=== PATIENT | male | born 1935 | race Caucasian/White ===

== ENCOUNTER 2016-07-02 07:54 | Emergency (ER) | payer BC, MEDICARE ==
--- NOTE | 2016-07-02 08:02 | ED.PDOC ---
History of Present Illness - General Chief Complaint: General Stated Complaint: feeling weak,fall Time Seen by Provider: 07/02/16 08:01 Source: patient, RN notes reviewed, Vital Signs reviewed, EMS notes reviewed Exam Limitations: no limitations - History of Present Illness Initial Comments: Wilbert 81 y/o male wirh history of RA and hyperlipedemia stated that he had vomiting and diarrhea 4 days ago got better and after taking shower this am got out but fell unable to get up and crawled out he was then helped by his son.He denies pain on his body ,no loc remembers incident stated son staying with him since is out of town and helped him then called ems.He also denies slurred speech and facial weakness Timing/Duration: 1-3 hours Improving Factors: nothing Worsening Factors: nothing Associated Symptoms: denies symptoms Allergies/Adverse Reactions: Allergies NO KNOWN ALLERGY Allergy (Verified 07/02/16 08:10) Review of Systems - Review of Systems Constitutional: States: no symptoms reported EENTM: States: no symptoms reported Respiratory: States: no symptoms reported Cardiology: States: no symptoms reported Gastrointestinal/Abdominal: States: see HPI Genitourinary: States: no symptoms reported Musculoskeletal: States: no symptoms reported Skin: States: no symptoms reported Neurological: States: no symptoms reported Endocrine: States: no symptoms reported Hematologic/Lymphatic: States: no symptoms reported Past Medical History (General) - Patient Medical History Hx Other PMH: Yes - Rheumatoid Arthtritis,hyperlipedemia Surgical History: appendectomy - Activities of Daily Living Patient Lives Alone: No - with Family Medical History - Family History Mother Family History: Unknown Name: Both parents when he was 1 y/o he was taken cared by his step brother Physical Exam - Physical Exam General Appearance: Alert, Comfortable, No apparent distress Eye Exam: bilateral normal Ears, Nose, Throat: hearing grossly normal, normal ENT inspection, normal pharynx Neck: non-tender, full range of motion, supple, normal inspection Respiratory: chest non-tender, lungs clear, normal breath sounds, no respiratory distress, no accessory muscle use Cardiovascular/Chest: normal peripheral pulses, regular rate, rhythm, no edema, no gallop, no JVD, no murmur Peripheral Pulses: radial,right: 2+, radial,left: 2+ Gastrointestinal/Abdominal: normal bowel sounds, non tender, soft, no organomegaly, no pulsatile mass Back Exam: normal inspection, no CVA tenderness, no vertebral tenderness Extremity: normal range of motion, non-tender, normal inspection, no pedal edema Neurologic: no motor/sensory deficits, alert, normal mood/affect, oriented x 3 Skin Exam: normal color, warm/dry Lymphatic: no adenopathy Departure - Departure Clinical Impression: Malaise and fatigue, Post viral debility Fall at home Qualifiers: Encounter type: initial encounter Qualifier Code: (W19.XXXA) Unspecified fall, initial encounter Time of Disposition: 12:47 Disposition: Discharge to Home or Self Care Condition: Good Instructions: DI for Viral Syndrome Additional Instructions: KEEP APPOINTMENT WITH PRIMARY MD THIS AFTERNOON,RETURN TO EMERGENCY ROOM NEEDED
[2016-07-02 08:13] VITALS: TEMP 99.5
--- NOTE | 2016-07-02 08:56 | RAD ---
EXAM DESCRIPTION: Chest,1 View CLINICAL HISTORY: Full injury. Chest pain FINDINGS/ IMPRESSION: Normal cardiomediastinal silhouette given the positioning. No pulmonary edema, infiltrate or effusion. No pneumothorax. 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
[2016-07-02] MEDS ORDERED: cefTRIAXone SODIUM 2 GM in SODIUM CHL 0.9% 100ML MINI-BAG 100 ML IVPB ONE (11:28)
[2016-07-02] MEDS ORDERED: SODIUM CHLORIDE 0.9% 500ML 500 ML IVS ONE (11:34)
[2016-07-02] MEDS ORDERED: SODIUM CHL 0.9% 100ML MINI-BAG 100 ML IVPB ONE (11:43)
[2016-07-02 13:14] VITALS: BP 145/81; O2SAT 98
== END 2016-07-02 12:57 | disposition home or self-care (01) ==
LOC: ER 07:54
DX: R53.81 Other malaise (principal); M06.9 Rheumatoid arthritis, unspecified; E78.5 Hyperlipidemia, unspecified; W19.XXXA Unspecified fall, initial encounter; Y92.002 Bathroom of unspecified non-institutional (private) residence as the place of occurrence of the external cause

== ENCOUNTER → 2016-11-12 | Outpatient (CLI) | payer MEDICARE, OTHER ==
--- NOTE | 2016-11-12 11:05 | MRI ---
EXAM DESCRIPTION: Brain w/oContrast CLINICAL HISTORY: MEMORY LOSS COMPARISON: None available TECHNIQUE: Non contrast MRI of the brain is performed according to our usual protocol including multiplanar multi sequence technique. FINDINGS: Noncontrast MRI of the brain demonstrates ventriculomegaly with very slight prominence of the ventricular system and cortical sulci with no evidence of extra-axial fluid collection or midline shift. Extensive coalescent and scattered periventricular and subcortical white matter changes of aging and small vessel disease is apparent. A large area of cortical gliosis is not apparent. No midline shift is seen. Gradient echo imaging demonstrates no evidence of intracranial or subarachnoid hemorrhage. A few of the white matter signal changes appear to be juxtacortical raising the possibility of an element of a demyelinating process in this elderly male patient. The demographic and sex of this patient would make multiple sclerosis an unlikely diagnosis. No evidence of restricted diffusion to suggest acute or subacute ischemia is seen. The corpus callosum is intact. The sellar and suprasellar regions are normal and no abnormality of the brainstem is noted with midline position of the fourth ventricle. IMPRESSION: 1. Ventriculomegaly and prominence of the cortical sulci with extensive periventricular and subcortical white matter changes of aging and small vessel disease. These findings are somewhat more prominent than typically seen. 2. No evidence of recent or prior cortical infarction or focal atrophy or evidence of extra-axial fluid collection or intracranial hemorrhage or mass. 3. A few of the white matter signal changes appear to be juxtacortical. This location raises the possibility of a demyelinating process which is thought unlikely in this elderly male patient but cannot be entirely excluded. Electronically signed by: Vineet García MD 11/12/2016 11:04 AM CDT
== END ==
LOC: MRI 07:50
DX: R41.3 Other amnesia (principal); G93.89 Other specified disorders of brain

== ENCOUNTER → 2017-10-02 | Outpatient (CLI) | payer MEDICARE, OTHER | LOC: GMAH 10:13 | PROVIDERS: ATTEND Family Medicine | DX: Z12.5 Encounter for screening for malignant neoplasm of prostate (principal) ==

== ENCOUNTER → 2018-03-25 | Outpatient (CLI) | payer MEDICARE, OTHER | LOC: GMAH 10:28 | PROVIDERS: ATTEND Family Medicine | DX: E78.2 Mixed hyperlipidemia (principal); Z12.5 Encounter for screening for malignant neoplasm of prostate | CPT/HCPCS: 84443; 84550; G0103 ==

== ENCOUNTER 2018-05-25 05:38 | Day surgery (SDC) | payer MEDICARE, OTHER ==
[2018-05-25] MEDS ORDERED: PROPARACAINE 0.5% OPHTH SOL 15 ML BTTL ONE (10:51)
[2018-05-25] MEDS ORDERED: TROP 1%/CYCLOPEN 1%/PHENYL 2% DROPS ONE (10:51)
[2018-05-25] MEDS ORDERED: MOXIFLOXACIN HCL (OPHTH) 1 DROP DROPS ONE (10:51)
== END 2018-05-25 11:43 | disposition home or self-care (01) ==
LOC: AMB 05:38
PROVIDERS: ATTEND Ophthalmology
DX: H26.491 Other secondary cataract, right eye (principal)

== ENCOUNTER 2019-09-01 14:21 | Emergency (ER) | payer MEDICARE, OTHER ==
[2019-09-01] MEDS ORDERED: SODIUM CHLORIDE 0.9% (FLUSH) 10 ML SYG IV PRN (14:42)
--- NOTE | 2019-09-01 15:43 | RAD ---
EXAM DESCRIPTION: Chest,1 View CLINICAL HISTORY: 84 years Male, vertigo COMPARISON: July 02, 2016 Findings: One view(s)/radiograph(s) Borderline cardiomegaly. No pulmonary vascular congestion. No pneumothorax. No definite pleural effusion. No focal consolidation. No acute osseous abnormality identified. IMPRESSION: No acute cardiopulmonary abnormality. Electronically signed by: Aristides Munguia MD 09/01/2019 3:41 PM CDT
--- NOTE | 2019-09-01 15:55 | CT ---
EXAM DESCRIPTION: Head CLINICAL HISTORY: stroke COMPARISON: None TECHNIQUE: Noncontrast transaxial CT images of the head are obtained from base to vertex. This exam was performed according to our departmental dose-optimization program, which includes automated exposure control, adjustment of the mA and/or kV according to patient size and/or use of iterative reconstruction technique. FINDINGS: The midline structures are not displaced. Sulci are age-appropriate. There are areas of decreased attenuation in the periventricular white matter and the white matter of the centrum semiovale. There is no evidence of mass, mass-effect, hydrocephalus, or acute intracranial hemorrhage. No abnormal extra axial fluid collection is seen. Bone windows show no evidence of depressed skull fracture. Moderate calcifications of the intracranial carotid arteries are seen. The visualized paranasal sinuses are unremarkable. IMPRESSION: 1. Age-appropriate atrophy with evidence of old small vessel ischemic type changes seen. 2. No acute abnormality is seen on noncontrast CT of the head. CT is insensitive for evaluation of acute intracranial ischemia. If clinically indicated further evaluation with MRI imaging may be useful Electronically signed by: Ran Esquivel MD 09/01/2019 3:53 PM CDT
--- NOTE | 2019-09-01 16:36 | ED.PDOC ---
History of Present Illness - General Chief Complaint: General Stated Complaint: Dizziness for 2 Weeks Time Seen by Provider: 09/01/19 14:41 Source: patient, Vital Signs reviewed, RN/MD Exam Limitations: no limitations - History of Present Illness Initial Comments: 84 y/o male c/o 2 weeks of dizziness, like vague kind of vertigo. He had fallen and hit his R forehead and seemed to have thihs feeling since. No headaches, f/c, falls, n/v, or visual disturbance. He has had vertigo in the past but says it's different from this. No incontinence. no noticeable change in gait. Allergies/Adverse Reactions: Allergies NO KNOWN ALLERGY Allergy (Verified 07/02/16 08:10) Home Medications: Ambulatory Orders Meclizine HCl [Meclizine 25] 25 mg PO Q4HR PRN #20 tab 09/01/19 Review of Systems - Review of Systems Constitutional: States: no symptoms reported EENTM: States: no symptoms reported Respiratory: States: no symptoms reported Cardiology: States: no symptoms reported, other - he has a pulse ox and notices that his pulse rate is quite variable but not especially high or low Gastrointestinal/Abdominal: States: no symptoms reported, see HPI Genitourinary: States: no symptoms reported, other - nocturia x 2 Musculoskeletal: States: joint pain, muscle pain, other - has rheumatoid arthritis Skin: States: no symptoms reported Neurological: States: other - vertigo Past Medical History (General) - Patient Medical History Hx Congestive Heart Failure: No Hx Diabetes: No - Vaccination History Hx Tetanus, Diphtheria Vaccination: - unknown Hx Influenza Vaccination: No Hx Pneumococcal Vaccination: Yes - Social History Hx Tobacco Use: No Hx Alcohol Use: Yes Hx Substance Use: No Hx Substance Use Treatment: No Hx Depression: No - Female History Patient : No Family Medical History - Family History Mother Family History: Unknown Name: Both parents when he was 1 y/o he was taken cared by his step brother Physical Exam - Physical Exam General Appearance: Alert, Comfortable, No apparent distress Eye Exam: bilateral abnormal EOM - nystagmus with R gaze Ears, Nose, Throat: hearing grossly normal, normal ENT inspection Neck: non-tender, normal inspection, limited range of motion - arthritis Respiratory: chest non-tender, lungs clear, normal breath sounds, no respiratory distress Cardiovascular/Chest: regular rate, rhythm, no edema, no gallop, no JVD, no murmur Gastrointestinal/Abdominal: normal bowel sounds, non tender, soft, no organomegaly Back Exam: normal inspection Extremity: normal inspection, no pedal edema Neurologic: no motor/sensory deficits, alert, normal mood/affect, oriented x 3, abnormal cerebellar tests - past pointing R, intact rapid alternating movements, neg Romberg, no drift,normal heel to chowdary Progress - Progress Progress: 09/01/19 16:35 EKG NSR 94, can't r/o anterior infarct, no st elevation. QTc 440 - EKG/XRAY/CT CT Ordered: Yes Departure - Departure Clinical Impression: Vertigo, Fall at home Disposition: Discharge to Home or Self Care Condition: Good Departure Forms: ED Discharge - Pt. Copy, Patient Portal Self Enrollment Instructions: Vertigo (a Type of Dizziness) (DC) Referrals: Walter Syed MD [Primary Care Provider] - 1-2 Weeks Prescriptions: Meclizine HCl [Meclizine 25] 25 mg PO Q4HR PRN #20 tab PRN Reason: Dizziness Home Medications: Ambulatory Orders Meclizine HCl [Meclizine 25] 25 mg PO Q4HR PRN #20 tab 09/01/19
[2019-09-01 17:00] VITALS: BP 136/82; TEMP 97.7; O2SAT 97
== END 2019-09-01 17:00 | disposition home or self-care (01) ==
LOC: ER 14:21
DX: R42 Dizziness and giddiness (principal); S09.90XA Unspecified injury of head, initial encounter; W18.30XA Fall on same level, unspecified, initial encounter; Y92.9 Unspecified place or not applicable

== ENCOUNTER → 2020-02-16 | Outpatient (CLI) | payer MEDICARE, OTHER ==
--- NOTE | 2020-02-16 11:58 | RAD ---
EXAM DESCRIPTION: Barium Swallow: Rad-Fluoroscopy. CLINICAL HISTORY: DYSPHAGIA USPECIF. COMPARISON: None TECHNIQUE: Fluoroscopy performed by Dr. Ray The patient swallowed barium pill with water. The patient swallowed heavy density barium under fluoroscopic visualization. The images were obtained with the patient standing AP and lateral 17 fluoroscopic cine loop images. 2 single static fluoroscopic images. Chest PA and lateral routine standing. Total fluoroscopy time was 1.6 minutes. DAP: 1.9 Gy-cm2.. FINDINGS: The patient had difficulty with the barium pill leaving the oral cavity with water. The pill lodged in the right vallecula and could not be dislodged with water. Patient drank barium in the lateral standing position. Leonel aspiration is noted of barium into the proximal trachea. The patient did not cough. The pill remained in the right vallecula. The fluoroscopic examination was terminated at this point, with no further intake of barium. Senescent changes in the lungs bilaterally. Bilateral hyperinflation. Minimal barium noted in the left lower lobe bronchi and in the esophagus. IMPRESSION: 1. Leonel aspiration of barium into trachea without coughing. Chest x-ray shows minimal barium in the left lower lobe bronchi. 2. Barium pill was lodged in the right vallecula at the end of the examination. 3. Patient instructed to go home and continue to drink water, with no intake of food, until contacted by physician's office. CRITICAL COMMUNICATION: The critical value was communicated by text message from Dr. Ray 1043 hours, on February 16, 2020, to Dr. Walter Anderson with text acknowledgment by Dr. Anderson at approximately 1054 hours, on same day. Electronically signed by: Mahesh Ray MD 02/16/2020 11:57 AM CDT
== END ==
LOC: RAD 08:43
PROVIDERS: ATTEND Family Medicine
DX: R13.10 Dysphagia, unspecified (principal)

== ENCOUNTER → 2020-02-17 | Outpatient (CLI) | payer MEDICARE, OTHER ==
--- NOTE | 2020-02-18 10:25 | CT ---
EXAM DESCRIPTION: Chest w/wo Contrast CLINICAL HISTORY: 84 years Male, DYSPHAGIA COMPARISON: Barium swallow 02/16/2020. Chest radiograph 09/01/2019. TECHNIQUE: CT images through the chest without IV contrast. Multiplanar reformations provided. This exam was performed according to our departmental dose-optimization program, which includes automated exposure control, adjustment of the mA and/or kV according to patient size and/or use of iterative reconstruction technique. CT CHEST FINDINGS: Heart and mediastinum: Normal heart size. Trace pericardial effusion. Moderate mucosal thickening of nondilated mid to lower esophagus. No hiatal hernia. No mediastinal or hilar adenopathy. Moderate atherosclerosis. Thyroid Gland: Normal. Lungs: 4 mm mildly spiculated pulmonary nodule in the right middle lobe on series 11 image 84. 2 mm solid pulmonary nodule in the inferior lingula on series 11 image 87. Airways: Mild bronchiectasis with lower lobe predominance. No airway filling defect. No bronchial wall thickening. Pleura: Normal. Musculoskeletal and Soft Tissues: No acute fracture or aggressive appearing osseous lesion. Soft tissues unremarkable. Subphrenic Structures: Please refer to concurrent CT abdomen pelvis study. IMPRESSION: 1. Moderate mucosal thickening of the mid to lower nondilated esophagus. This could relate to esophagitis or reflux. Consider GI consultation with upper endoscopy to further evaluate and exclude malignancy. 2. Multiple pulmonary nodules. Most severe: 4.0 mm solid suspicious pulmonary nodule. If patient is low risk for malignancy, no routine follow-up imaging is recommended; if patient is high risk for malignancy, a non-contrast Chest CT at 12 months is optional. If performed and the nodule is stable at 12 months, no further follow-up is recommended. These guidelines do not apply to immunocompromised patients and patients with cancer. Follow up in patients with significant comorbidities as clinically warranted. For lung cancer screening, adhere to Lung-RADS guidelines. Reference: Radiology. 2017; 284(1):228-43. Electronically signed by: Bernardino Wiggins MD 02/18/2020 10:23 AM CDT
--- NOTE | 2020-02-18 10:32 | CT ---
EXAM DESCRIPTION: Soft Tissue Neck w/wo Contrast CLINICAL HISTORY: 84 years Male, DYSPHAGIA COMPARISON: Concurrent CT chest. TECHNIQUE: Transaxial images obtained from skull base through thoracic inlet without with intravenous contrast. Sagittal and coronal reformations provided. This exam was performed according to our departmental dose-optimization program, which includes automated exposure control, adjustment of the mA and/or kV according to patient size and/or use of iterative reconstruction technique. CT NECK FINDINGS: Nasopharynx, oropharynx, cervical airway: Normal. Oral cavity and salivary glands: Normal. Lymph nodes: Normal. Thyroid: Heterogeneous thyroid gland with 6 mm hypodense left thyroid nodule. Millimetric right thyroid nodules as well. No further imaging follow-up recommended. Vascular: Mild calcified atherosclerosis. Cervical esophagus: Normal. Musculoskeletal and soft tissues: No acute fracture or aggressive appearing osseous lesion. Soft tissues unremarkable. Visualized structures of the skull base: Normal. IMPRESSION: 1. No acute CT abnormality of the neck. Electronically signed by: Bernardino Wiggins MD 02/18/2020 10:30 AM CDT
--- NOTE | 2020-02-18 10:38 | CT ---
EXAM DESCRIPTION: Abdomen/Pelvis w/wo Contrast CLINICAL HISTORY: 84 years Male, DYSPHAGIA COMPARISON: Concurrent CT chest TECHNIQUE: CT of the abdomen and pelvis acquired without and with IV contrast material. Coronal and sagittal reformations provided. This exam was performed according to our departmental dose-optimization program, which includes automated exposure control, adjustment of the mA and/or kV according to patient size and/or use of iterative reconstruction technique. FINDINGS: Lung bases: Clear. Solid Organs: Punctate stone in the inferior pole left kidney. No right renal stone. No ureteral stone bilaterally. Decompressed gallbladder. Unremarkable liver, spleen, pancreas, adrenal glands. GI tract: Intraluminal contrast within the distal small bowel and throughout the colon likely from prior modified barium swallow study. Unremarkable stomach. No small bowel obstruction. Extensive diverticula without pericolonic inflammation or fluid collection. Moderate colonic stool. There is mucosal thickening of the distal esophagus. Vascular: Severe atherosclerosis. Musculoskeletal and soft tissues: No acute fracture or aggressive appearing osseous lesion. Small right and moderate left fat-containing inguinal hernias. Urinary bladder: Decompressed. Prostate: Mildly enlarged up to 5.0 cm maximal transverse dimension. Other: Nonspecific retroperitoneal para-aortic lymph nodes measuring 11 mm short axis. Prominent gastric hepatic lymph nodes are present as well measuring up to 10 mm short axis. IMPRESSION: 1. Nonspecific thickening of the distal esophagus. This may relate to esophagitis or reflux but neoplasm not excluded. Recommend GI consult with upper endoscopy to further evaluate. 2. Nonspecific enlarged gastric hepatic and retroperitoneal periaortic lymph nodes. These may be reactive, related to the lymphoproliferative disorder, or metastatic adenopathy. 3. Other findings as above. Electronically signed by: Bernardino Wiggins MD 02/18/2020 10:36 AM CDT
== END ==
LOC: CT 09:40
PROVIDERS: ATTEND Family Medicine
DX: Z01.812 Encounter for preprocedural laboratory examination (principal); R13.10 Dysphagia, unspecified; K22.9 Disease of esophagus, unspecified; R59.9 Enlarged lymph nodes, unspecified; N40.0 Benign prostatic hyperplasia without lower urinary tract symptoms; K57.30 Diverticulosis of large intestine without perforation or abscess without bleeding; I70.90 Unspecified atherosclerosis; K40.20 Bilateral inguinal hernia, without obstruction or gangrene, not specified as recurrent; R91.8 Other nonspecific abnormal finding of lung field

== ENCOUNTER 2020-04-22 09:25 | Emergency (ER) | payer MEDICARE, OTHER ==
[2020-04-22 09:45] VITALS: TEMP 97.3; O2SAT 99
--- NOTE | 2020-04-22 10:21 | ED.PDOC ---
History of Present Illness - General Chief Complaint: Back Pain or Injury Stated Complaint: left lower back pain Time Seen by Provider: 04/22/20 09:34 Source: patient, family Exam Limitations: no limitations - History of Present Illness Timing/Duration: other - 1 month Quality/Severity: moderate Back Pain Location: lumbar spine Back Pain Radiation: upper legs Method of Injury/Prior Injury: twisted Improving Factors: nothing Worsening Factors: nothing Associated Symptoms: denies symptoms Allergies/Adverse Reactions: Allergies NO KNOWN ALLERGY Allergy (Verified 07/02/16 08:10) Home Medications: Ambulatory Orders Hydroxychloroquine Sulfate [Hydroxychloroquine Sulfat] 200 mg PO DAILY 04/22/20 Simvastatin [Zocor] 40 mg PO BEDTIME 04/22/20 Review of Systems - Review of Systems Constitutional: Denies: chills, fever EENTM: Denies: blurred vision, tearing, nose pain, nose congestion Respiratory: Denies: see HPI, cough, short of breath, stridor Cardiology: Denies: see HPI, chest pain, palpitations, syncope Gastrointestinal/Abdominal: Denies: abdominal pain, diarrhea, nausea Genitourinary: Denies: see HPI, discharge, frequency, hematuria Past Medical History (General) - Patient Medical History Hx Stroke: No Hx Congestive Heart Failure: No Hx Diabetes: No Surgical History: appendectomy - Vaccination History Hx Tetanus, Diphtheria Vaccination: - unknown Hx Influenza Vaccination: No Hx Pneumococcal Vaccination: Yes - Social History Hx Tobacco Use: No Hx Alcohol Use: Yes Hx Substance Use: No Hx Substance Use Treatment: No Hx Depression: No - Female History Patient : No Family Medical History - Family History Mother Family History: Unknown Name: Both parents when he was 1 y/o he was taken cared by his step brother Physical Exam - Physical Exam General Appearance: Alert Eyes, Ears, Nose, Throat Exam: normal ENT inspection, TMs normal, pharynx normal Neck Exam: non-tender, full range of motion, normal alignment, normal inspection, abnormal alignment, limited range of motion, muscle spasm Cardiovascular/Respiratory: regular rate, rhythm, normal peripheral pulses, no JVD, normal breath sounds, no respiratory distress, JVD Peripheral Pulses: radial,right: 2+, radial,left: 2+, popliteal,right: 2+, popliteal,left: 2+ Gastrointestinal/Abdominal: normal bowel sounds, non tender, soft, no organomegaly, no pulsatile mass Back Exam: normal inspection, no CVA tenderness, no vertebral tenderness, vertebral tenderness - lumba spine , mild left pelvis pain Extremity Exam: no evidence of injury, normal range of motion, non-tender, no pedal edema 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 Copy, Patient Portal Self Enrollment Instructions: DI for Low Back Pain Diet: full liquid diet Referrals: Walter Syed MD [Primary Care Provider] - 1-2 Weeks Home Medications: Ambulatory Orders Hydroxychloroquine Sulfate [Hydroxychloroquine Sulfat] 200 mg PO DAILY 04/22/20 Simvastatin [Zocor] 40 mg PO BEDTIME 04/22/20 Additional Instructions: Please follow-up with your primary care physician in 1 to 2 days Please return to the emergency department immediately develop any bowel or urinary incontinence, any perianal numbness or any further concerns. Tylenol codeine has been prescribed , and Flexeril please do not use this medication and operate a motor vehicle accident time.
--- NOTE | 2020-04-22 10:23 | RAD ---
EXAM DESCRIPTION: Pelvis RadLex: XR PELVIS 1-2 VIEWS Views: 1 CLINICAL HISTORY: pain ; COMPARISON: None. FINDINGS: No acute fracture or dislocation. No significant diastasis of the sacroiliac joints or symphysis pubis. IMPRESSION: 1. Bony pelvis is intact. Electronically signed by: Emmett Fuentes MD 04/22/2020 10:22 AM [facility]
--- NOTE | 2020-04-22 10:23 | RAD ---
EXAM DESCRIPTION: Lumbosacral w/Oblique,Flex,Ext RadLex: XR LUMBAR SPINE ANTEROPOSTERIOR, LATERAL, AND OBLIQUES Views: 5 CLINICAL HISTORY: ; pain ; COMPARISON: None. FINDINGS: There is some minimal subluxation of vertebrae L3 on L4 by approximately 3 mm. This persists on both the flexion and extension films. The remainder of the vertebra and alignment. There is diffuse disc space narrowing at T11-T12 and T12-L1 as well as at L3-4, L4-5 and L5-S1 with vacuum phenomenon seen L5-S1. Degenerative facet arthropathy seen at L3-4, L4-5 and L5-S1. There is no evidence for fracture. Diffuse atherosclerotic disease is seen within the aorta. IMPRESSION: 1. Multilevel diffuse degenerative changes most pronounced at L5-S1. Electronically signed by: Emmett Fuentes MD 04/22/2020 10:21 AM [facility]
[2020-04-22] MEDS ORDERED: ACETAMINOPHEN W/COD #3 TAB 1 EA TAB PO ONE (10:32)
[2020-04-22] MEDS ORDERED: CYCLOBENZAPRINE HCL 10 MG TAB PO ONE (10:32)
[2020-04-22 11:08] VITALS: BP 179/94
== END 2020-04-22 10:45 | disposition home or self-care (01) ==
LOC: ER 09:25
DX: M54.5 Low back pain (principal)

== ENCOUNTER 2020-05-10 08:11 | Emergency (ER) | payer MEDICARE, OTHER ==
[2020-05-10] MEDS ORDERED: TETANUS-DIPHTHERIA TOXOIDS (TD) SYG IM ONE (08:13)
--- NOTE | 2020-05-10 08:16 | ED.PDOC ---
History of Present Illness - General Chief Complaint: Trauma Stated Complaint: fall right shoulder pain Time Seen by Provider: 05/10/20 08:12 Source: patient, RN notes reviewed, Vital Signs reviewed Additional Information: 78-year-old male patient, presents to the ER because of a fall, patient lives at home he takes care of himself, patient was standing up from his bed waking up, when he fell, patient did hit his head but denies losing consciousness denies. Patient is complaining of right shoulder pain, denies any chest pain denies abdominal pain patient is seen in his usual medical baseline, and does not have any hip pain or lower extremity pain - History of Present Illness Occurred: just prior to arrival Pain Location: upper extremity Method of Injury: fall Improving Factors: nothing Worsening Factors: nothing Loss of Consciousness: no loss of consciousness Associated Symptoms (Fall): denies symptoms Allergies/Adverse Reactions: Allergies NO KNOWN ALLERGY Allergy (Verified 05/10/20 08:20) Home Medications: Ambulatory Orders Hydroxychloroquine Sulfate [Hydroxychloroquine Sulfat] 200 mg PO DAILY 04/22/20 Simvastatin [Zocor] 40 mg PO BEDTIME 04/22/20 Review of Systems - Review of Systems Constitutional: States: no symptoms reported EENTM: States: no symptoms reported Respiratory: States: no symptoms reported Cardiology: States: no symptoms reported Gastrointestinal/Abdominal: States: no symptoms reported Genitourinary: States: no symptoms reported Musculoskeletal: States: no symptoms reported Skin: States: no symptoms reported, change in color Neurological: States: no symptoms reported Endocrine: States: no symptoms reported Hematologic/Lymphatic: States: no symptoms reported Past Medical History (General) - Patient Medical History Hx Stroke: No Hx Congestive Heart Failure: No Hx Diabetes: No - Vaccination History Hx Tetanus, Diphtheria Vaccination: - unknown Hx Influenza Vaccination: No Hx Pneumococcal Vaccination: Yes - Social History Hx Tobacco Use: No Hx Alcohol Use: Yes Hx Substance Use: No Hx Substance Use Treatment: No Hx Depression: No - Female History Patient : No Family Medical History - Family History Mother Family History: Unknown Name: Both parents when he was 1 y/o he was taken cared by his step brother Physical Exam - Physical Exam General Appearance: Well Developed, Well Groomed, Well Hydrated, Well Nourished Head Injury: no evidence of injury Eye Exam: bilateral normal ENT Exam: hearing grossly normal, no evidence of ENT injury, no dental injury Neck Exam: non-tender, full range of motion, normal alignment, normal inspection Cardiovascular/Respiratory: regular rate, rhythm, no M/R/G, normal peripheral pulses, no JVD Gastrointestinal/Abdominal: normal bowel sounds, non tender, soft, no organ omegaly, no pulsatile mass Back Exam: normal inspection, no CVA tenderness, no vertebral tenderness Extremity Exam: other - no clinical fractures right elbow skin tear 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 as tested, no motor/sensory deficits, alert, normal mood/affect Skin Exam: other - elbow skin tear - [place] Coma Score Best Eye Response ([place]): (4) open spontaneously Best Verbal Response (Reji): (5) oriented Best Motor Response (Reji): (6) obeys commands [place] Total: 15 Progress - Progress Progress: 79 -year-old male patient, that is by himself, he still drives but presents to the ER after he fell while getting up from the bed, patient was able to move all his extremities, including the lower extremities denied any head pain, normal medical exam GCS of 15, with a complaint of shoulder pain and elbow pain. Because of her age I got a head CT that was negative for epidural subdural intracranial hemorrhage, cervical spine CT was also negative for fracture subluxation there were no humeral head fracture no shoulder dislocation and no elbow fracture or dislocation, patient has not complained also to speak with the patient son is requestin lab work because the patient for the past 3 months have been negative with, he did know the son has not had primary care physician and the father has no complaints and want to go home. Ordered blood work, and also have social work talk to the patient and the son so that we can find or give him resources to find either home health nurse may be even more specialized facility for this patient 05/10/20 09:56 05/10/20 10:14 Basic labs on this patient, as requested by the family member, they do have information on resources to set up home health. Patient has been sitting down does not feel any distress, does not be weak no focal neurological deficits Departure - Departure Clinical Impression: Sprain and strain of elbow Fall Qualifiers: Encounter type: initial encounter Qualified Code(s): W19.XXXA - Unspecified fall, initial encounter Elbow sprain Qualifiers: Encounter type: initial encounter Laterality: right Qualified Code(s): S53.401A - Unspecified sprain of right elbow, initial encounter Disposition: Discharge to Home or Self Care Condition: Fair Departure Forms: ED Discharge - Pt. Copy, Patient Portal Self Enrollment Instructions: DI for Trauma, Shoulder Sprain, Elbow Sprain (DC), Concussion, Adult (DC) Referrals: Walter Syed MD [Primary Care Provider] - 1-2 Weeks Home Medications: Ambulatory Orders Hydroxychloroquine Sulfate [Hydroxychloroquine Sulfat] 200 mg PO DAILY 04/22/20 Simvastatin [Zocor] 40 mg PO BEDTIME 04/22/20
[2020-05-10] MEDS ORDERED: TETANUS,DIPHTHERIA,PERTUSSIS 1 EA SYG IM ONE (08:30)
--- NOTE | 2020-05-10 09:15 | CT ---
EXAM DESCRIPTION: Cervical Spine CLINICAL HISTORY: fall COMPARISON: None available. TECHNIQUE: CT of the cervical spine was performed without IV contrast. This exam was performed according to our departmental dose-optimization program, which includes automated exposure control, adjustment of the mA and/or kV according to patient size and/or use of iterative reconstruction technique. FINDINGS: No cervical vertebral body fracture or subluxation. The posterior elements are intact. Visualized portions of the thoracic spine are intact. Moderately advanced multilevel degenerative changes including degenerative disc and facet joint disease. Facet joint hypertrophy results in neural foraminal stenosis at multiple levels including severe neural foraminal stenosis at multiple levels. No apical pneumothorax. No thyroid nodule. Carotid artery calcifications bilaterally. IMPRESSION: Moderately advanced multilevel degenerative changes without acute cervical spine abnormality. Bilateral carotid artery disease. Nonemergent ultrasound should be considered for further evaluation if not performed recently. Electronically signed by: Jorje Posey MD 05/10/2020 9:13 AM [facility]
--- NOTE | 2020-05-10 09:17 | CT ---
EXAM DESCRIPTION: Head CLINICAL HISTORY: 84 years, Male, fall COMPARISON: September 01, 2019 TECHNIQUE: Head CT was performed without IV contrast. This exam was performed according to our departmental dose-optimization program, which includes automated exposure control, adjustment of the mA and/or kV according to patient size and/or use of iterative reconstruction technique. FINDINGS: No acute intracranial hemorrhage. No midline shift. Generalized age-appropriate volume loss with mild ex vacuo prominence of the ventricles. Chronic ischemic changes in the periventricular white matter without cortical infarct or intracranial mass. No posterior fossa lesion. Visualized paranasal sinuses and orbits are unremarkable. Vascular calcifications. No calvarial fracture. IMPRESSION: No acute intracranial abnormality. Electronically signed by: Jorje Posey MD 05/10/2020 9:16 AM JUDICIAL CLERK
--- NOTE | 2020-05-10 09:19 | RAD ---
EXAM DESCRIPTION: Elbow,Right 3 Views CLINICAL HISTORY: fall COMPARISON: None Available. TECHNIQUE: AP, Lateral, and Oblique FINDINGS: Three-view right elbow shows no fracture or dislocation. No displaced fat pad or effusion is noted. There is no bone lesion. Modest age-appropriate degenerative changes present. No fracture or dislocation noted. There is no radiopaque foreign body. IMPRESSION: 1. Mild degenerative changes, age-appropriate, otherwise negative right elbow three views. Electronically signed by: Vineet García MD 05/10/2020 9:18 AM [facility]
--- NOTE | 2020-05-10 09:23 | RAD ---
EXAM DESCRIPTION: Shoulder,Right 2 or More Views CLINICAL HISTORY: fall COMPARISON: None Available. TECHNIQUE: Two views of the right shoulder. FINDINGS: Osteopenia and degenerative changes with intact chest wall and clear mid and upper lung field noted. Advanced AC joint arthropathy and moderate superior migration of the humeral head consistent with rotator cuff atrophic changes noted. No fracture or dislocation seen. No destructive process seen. IMPRESSION: 1. Advanced degenerative changes right shoulder. Electronically signed by: Vineet García MD 05/10/2020 9:21 AM [facility]
[2020-05-10 10:54] VITALS: BP 176/91; TEMP 97.8; O2SAT 96
== END 2020-05-10 10:54 | disposition home or self-care (01) ==
LOC: ER 08:11
DX: S53.401A Unspecified sprain of right elbow, initial encounter (principal); M47.812 Spondylosis without myelopathy or radiculopathy, cervical region; M19.011 Primary osteoarthritis, right shoulder; Z23 Encounter for immunization; W06.XXXA Fall from bed, initial encounter; Y92.003 Bedroom of unspecified non-institutional (private) residence as the place of occurrence of the external cause